=== PATIENT | male | born 1960 | race Caucasian/White ===

== ENCOUNTER 2019-09-16 10:21 | Emergency (ER) | payer OTHER ==
[~2019-09-16] VITALS: Ht 185.4 cm; Wt 86.1 kg
[2019-09-16 10:24] VITALS: BP 184/83
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
[2019-09-16] MEDS ORDERED: LISI-167 PO (10:40)
[2019-09-16] MEDS ORDERED: DICL1ADH15 PO (10:40)
[2019-09-16] MEDS ORDERED: ATOR40TA78 PO (10:40)
--- NOTE | 2019-09-16 10:40 | NUR ---
MED REC COMPLETED.
[2019-09-16] MEDS ORDERED: DIPH,PERTUSS(ACELL),TET VAC/PF 0.5 ML IM-VACC ONE ×3 (10:51→11:00)
[2019-09-16] MEDS ORDERED: LIDOCAINE-MPF 1%, 5ML ONE (10:51)
[2019-09-16] MEDS ORDERED: LIDOCAINE-MPF 1%, 5ML INFIL ONE (11:00)
--- NOTE | 2019-09-16 11:01 | NUR ---
PT MEDICATED PER ORDER.
--- NOTE | 2019-09-16 11:07 | NUR ---
TECH AT BEDSIDE FOR WOUND CLEANING AND C-COLLAR APPLICATION.
--- NOTE | 2019-09-16 11:53 | NUR ---
PT TO CT.
--- NOTE | 2019-09-16 12:08 | NUR ---
PT BACK FROM CT.
--- NOTE | 2019-09-16 12:15 | NUR ---
PA AT BEDSIDE FOR SUTURES.
[2019-09-16] MEDS ORDERED: NEOSPORIN OINT. PKT 1 PACKET ONE (13:13)
--- NOTE | 2019-09-16 13:37 | NUR ---
Patient/Caregiver given discharge instructions and they have confirmed that they understand the instructions. Patient ambulatory with steady gait.
== END 2019-09-16 13:38 | disposition home or self-care (01) ==
LOC: ED 13:34
DX: S01.511A Laceration without foreign body of lip, initial encounter (principal); S16.1XXA Strain of muscle, fascia and tendon at neck level, initial encounter; I10 Essential (primary) hypertension; W55.32XA Struck by other hoof stock, initial encounter; Y93.89 Activity, other specified; Y92.009 Unspecified place in unspecified non-institutional (private) residence as the place of occurrence of the external cause; Y99.8 Other external cause status
CPT/HCPCS: 12052; 13152; 72125; 90471; 90715; 99284; 99285